=== PATIENT | male | born 1995 | race Caucasian/White ===

== ENCOUNTER 2019-07-03 22:17 | Emergency (ER) | payer OTHER ==
[2019-07-03] MEDS ORDERED: Ketorolac 60 MG/2 ML SDV IM ONE (22:36)
--- NOTE | 2019-07-03 22:45 | EDM.PDOC ---
ED HPI GENERAL MEDICAL PROBLEM - General Chief Complaint: Upper Extremity Injury/Pain Stated Complaint: INJURY TO R HAND Time Seen by Provider: 07/03/19 22:34 Source of Information: Reports: Patient - History of Present Illness INITIAL COMMENTS - FREE TEXT/NARRATIVE: Garfield is a 23 y/o male who comes to the ER with pain in his right hand. He reports that he punched the side of his pickup tonight when he was angry. He also did the same thing a week or so ago. He can move his fingers, but he reports a sharp constant pain in his hand. He has taken no meds. Review of Systems - Review of Systems Review Of Systems: See Below Constitutional: Reports: No Symptoms Eyes: Reports: No Symptoms Ears: Reports: No Symptoms Nose: Reports: No Symptoms Mouth/Throat: Reports: No Symptoms Respiratory: Reports: No Symptoms Cardiovascular: Reports: No Symptoms GI/Abdominal: Reports: No Symptoms Genitourinary: Reports: No Symptoms Musculoskeletal: Reports: No Symptoms, Hand Pain (right) Skin: Reports: No Symptoms Neurological: Reports: No Symptoms Psychiatric: Reports: No Symptoms ED EXAM, GENERAL - Physical Exam Exam: See Below Exam Limited By: No Limitations General Appearance: Alert, WD/WN, No Apparent Distress Ears: Normal External Exam, Normal Canal, Hearing Grossly Normal, Normal TMs Nose: Normal Inspection Throat/Mouth: Normal Inspection Head: Atraumatic, Normocephalic Neck: Supple Respiratory/Chest: No Respiratory Distress Cardiovascular: Other (deferred) GI/Abdominal: Other (deferred) (Male) Exam: Deferred Rectal (Males) Exam: Deferred Back Exam: Other (deferred) Extremities: Normal Range of Motion, Normal Capillary Refill, Redness (right hand, tender over disatal metacarpal region, mildly swollen) Neurological: Alert, Oriented, CN II-XII Intact, Normal Cognition, Normal Gait, Normal Reflexes, No Motor/Sensory Deficits Psychiatric: Normal Affect Skin Exam: Warm, Dry, Intact, Normal Color Lymphatic: Other (deferred) Course - Vital Signs Text/Narrative:: 2234 The patient was seen by the [employer]. Xray was ordered. He was given Toradol 60 mg IM for pain. 2300 Xray reviewed, no acute fx noted (Final Read pending). Patient was given discharge instructions and sent home stable condition. - Orders/Labs/Meds Orders: Active Orders 24 hr Category Date Time Status Hand 2V Rt [CR] Stat Exams 07/03/19 22:35 Taken Meds: Medications Discontinued Medications Generic Name Dose Route Start Last Admin Trade Name Noelle PRTing Reason Stop Dose Admin Ketorolac Tromethamine 60 mg 07/03/19 22:36 Toradol IM 07/03/19 22:37 ONETIME ONE Departure - Departure Time of Disposition: 23:02 Disposition: Home, Self-Care 01 Condition: Good Clinical Impression: Contusion of hand, right - Discharge Information *PRESCRIPTION DRUG MONITORING PROGRAM REVIEWED*: Not Applicable *COPY OF PRESCRIPTION DRUG MONITORING REPORT IN PATIENT TRINI: Not Applicable Instructions: Contusion, [id number], Hand Contusion, [id number] Forms: ED Department Discharge Additional Instructions: 1)Avoid hitting your pickup in the future 2)Ibuprofen 200mg 3 tablets oral every 6 hours as needed for pain 3)Acetaminophen 325mg 2-3 tablets oral every 4-6 hours as needed for pain 4)Apply ice as needed for the swelling and to decrease pain 5)Follow up with your PCP if pain in your hand continues or you have any other concerns - Problem List & Annotations (1) Contusion of hand, right SNOMED Code(s): 3959413 Code(s): S60.221A - CONTUSION OF RIGHT HAND, INITIAL ENCOUNTER Status: Acute Current Visit: Yes Qualifiers: Encounter type: initial encounter Qualified Code(s): S60.221A - Contusion of right hand, initial encounter - My Orders Last 24 Hours: My Active Orders 07/03/19 22:35 Hand 2V Rt [CR] Stat - Assessment/Plan Last 24 Hours: My Active Orders 07/03/19 22:35 Hand 2V Rt [CR] Stat
--- NOTE | 2019-07-04 08:24 | CR ---
[id number] RAD/RAD Hand Right 2V EXAM: RIGHT HAND 2 VIEWS INDICATION: Right hand pain secondary to punching pickup. COMPARISON: None. DISCUSSION: Lucency overlying the ventral aspect of the distal pole of the scaphoid. This could potentially represent a nondisplaced small fracture, but was a somewhat unusual location for fracture. Consider repeat radiographs. IMPRESSION: 1. Nonspecific lucency ventral aspect distal pole scaphoid possibly representing a nondisplaced fracture. Louis Maria MD 07/04/19 0822 Thank you for allowing us to participate in the care of your patient.
== END 2019-07-03 23:12 | disposition home or self-care (01) ==
LOC: VM.ED 22:17
DX: S60.221A Contusion of right hand, initial encounter (principal); W22.8XXA Striking against or struck by other objects, initial encounter
CPT/HCPCS: 73120; 96372; 99283; J1885

== ENCOUNTER 2019-08-28 08:48 | Emergency (ER) | payer OTHER ==
--- NOTE | 2019-08-28 10:02 | EDM.PDOC ---
ED HPI GENERAL MEDICAL PROBLEM - General Chief Complaint: Behavioral/Psych Stated Complaint: suicidal thoughts Time Seen by Provider: 08/28/19 08:55 Source of Information: Reports: Patient History Limitations: Reports: No Limitations - History of Present Illness INITIAL COMMENTS - FREE TEXT/NARRATIVE: Patient comes into the emergency department with police escort for suicidal ideation. Patient had sent a snapshot to his girlfriend earlier this morning stating he was going to look down the barrel of a gun and shoot himself. Patient states that he has a long-standing history of anxiety and depression and states if certain triggers her headache hands up becoming severely depressed and thinks about anything his life. Last night was Wattles occurrences he got a fight with his girlfriend and they were deciding whether the relationship was really going to be long-standing or not. After discussion left and he admits to taking a picture and admits to wanting to harm himself he ended up not on the trigger. Police ended up finding him and bring him in to the emergency department for further evaluation. Patient states he's had issues with his mood dating back to about the age of 14 or 15. He admits to having 10- 12 suicide attempts in his life including putting a gun to his head multiple occurrences and also overdosing on medications at least 4 times. Medications that he's overdosed on have been sleeping meds, ADHD meds, and muscle relaxers. Last night he does admit to using marijuana around 3 AM to help calm his nerves. Patient states that prior to his use of marijuana he felt sad, depressed , loss of interest, hopeless, hopeless, and worthless and guilty. He also states there is a long-standing history of anxiety and those feelings include feeling excessive worry, poor concentration, restlessness, and irritability. Patient currently states that he will not hurt himself and feels that his suicidal ideations have resolved she feels that his trigger has been released and he is more calm now. She denies any concerns or complaints currently and states that he does not have any injuries or illnesses reported. Onset: Gradual Severity: Moderate Improves with: Reports: None Worsens with: Reports: None Lower Back Pain Score (Numeric/FACES): 4 - Related Data Allergies Allergy/AdvReac Type Severity Reaction Status Date / Time No Known Allergies Allergy Verified 08/28/19 09:10 Home Meds: Home Meds . [No Known Home Meds] 07/04/19 [History] Past Medical History Psychiatric History: Reports: ADHD, Bipolar, Depression Dermatologic History: Reports: Other (See Below) Other Dermatologic History: staph infection L knee - Infectious Disease History Infectious Disease History: Reports: Other (See Below) Other Infectious Disease History: Patient states he has a history of a "staph infection" in his knee from a laceration that required a hospital stay. Social & Family History - Tobacco Use Smoking Status *Q: Current Every Day Smoker Years of Tobacco use: 14 Packs/Tins Daily: 3 - Recreational Drug Use Recreational Drug Use: Yes Drug Use in Last 12 Months: Yes Recreational Drug Type: Reports: Marijuana/Hashish Recreational Drug Use Frequency: Rarely ED ROS GENERAL - Review of Systems Review Of Systems: ROS reveals no pertinent complaints other than HPI. Constitutional: Reports: No Symptoms HEENT: Reports: No Symptoms Respiratory: Reports: No Symptoms Cardiovascular: Reports: No Symptoms Endocrine: Reports: No Symptoms GI/Abdominal: Reports: No Symptoms : Reports: No Symptoms Musculoskeletal: Reports: No Symptoms Skin: Reports: No Symptoms Neurological: Reports: No Symptoms Psychiatric: Reports: No Symptoms Hematologic/Lymphatic: Reports: No Symptoms Immunologic: Reports: No Symptoms ED EXAM, GENERAL - Physical Exam Exam: See Below Exam Limited By: No Limitations General Appearance: Alert, WD/WN, No Apparent Distress Eye Exam: Bilateral Eye: EOMI, PERRL Nose: Normal Inspection, Normal Mucosa, No Blood Throat/Mouth: Normal Inspection, Normal Lips, Normal Teeth Head: Atraumatic, Normocephalic Neck: Normal Inspection, Supple, Non-Tender, Full Range of Motion Respiratory/Chest: No Respiratory Distress, Lungs Clear, Normal Breath Sounds, No Accessory Muscle Use, Chest Non-Tender Cardiovascular: Normal Peripheral Pulses, Regular Rate, Rhythm, No Edema GI/Abdominal: Normal Bowel Sounds, Soft, Non-Tender, No Distention Back Exam: Normal Inspection, Full Range of Motion Extremities: Normal Inspection, Normal Range of Motion, Non-Tender, No Pedal Edema, Normal Capillary Refill Neurological: Alert, Oriented, CN II-XII Intact, Normal Gait Psychiatric: Normal Affect, Normal Mood Skin Exam: Warm, Dry, Intact, Normal Color Course - Vital Signs Last Recorded V/S: Last Vital Signs Temp 37.3 C 08/28/19 08:50 Pulse 92 08/28/19 08:50 Resp 16 08/28/19 08:50 BP 149/96 H 08/28/19 08:50 Pulse Ox 98 08/28/19 08:50 Departure - Departure Time of Disposition: 10:30 Disposition: Home, Self-Care 01 Condition: Fair Clinical Impression: Suicidal ideation - Discharge Information *PRESCRIPTION DRUG MONITORING PROGRAM REVIEWED*: Not Applicable *COPY OF PRESCRIPTION DRUG MONITORING REPORT IN PATIENT TRINI: Not Applicable Instructions: Suicidal Feelings: How to Help Yourself, Persistent Depressive Disorder, Adult Referrals: PCP,Unknown [Primary Care Provider] - Forms: ED Department Discharge, ED Return to Work/School Form Additional Instructions: 1. rest 2. Rosi the screener from the [facility] discussed present to open access tomorrow for further evaluation and appointment set up with psychiatry 3. Activity and diet as tolerated 4. The crisis line that was provided to you a [phone] 5. If you have any questions or any directions to the facility please call [facility] [phone] 6. As discussed with the screener on the phone a safety plan has been in place please follow the safety plan if at any time you do not feel the safety plan is helping any longer please present back to the emergency department immediately for further evaluation and treatment options 7. Please call with any questions or concerns he may have 8. If you're to be closer to [place] please present to the [facility] at [address] phone number is [phone] Call in the morning and find out what time open access is so he can present for an evaluation/screening - Assessment/Plan Assessment:: 1. Suicidal ideation
== END 2019-08-28 10:45 | disposition home or self-care (01) ==
LOC: VM.ED 08:48
DX: R45.851 Suicidal ideations (principal); F17.210 Nicotine dependence, cigarettes, uncomplicated; Z91.5 Personal history of self-harm
CPT/HCPCS: 99285

== ENCOUNTER 2021-10-01 19:49 | Emergency (ER) | payer OTHER ==
--- NOTE | 2021-10-01 19:53 | EDM.PDOC ---
ED HPI GENERAL MEDICAL PROBLEM - General Stated Complaint: METAL OR PAIN IN R EYE Time Seen by Provider: 10/01/21 19:52 History Limitations: Reports: No Limitations - History of Present Illness INITIAL COMMENTS - FREE TEXT/NARRATIVE: Patient come to the emergency department today with complaints of an eye pain and pain to his right eye. Earlier today at approximately 11:00 at work while the patient was at work he suddenly had a severe pain in his right eye. He is unsure if something flew into his eye. He was not grinding with metal or a wire brush. He was just working and suddenly had a severe pain in his right eye. He rinsed it out for a while but he still has quite a bit of pain to his right eye. He has not take anything for pain. He has a little bit of blurriness to his right eye but no double vision. He is starting to have a little bit of a headache as well to. His tetanus immunization is up-to-date right eye Pain Score (Numeric/FACES): 7 - Related Data Allergies Allergy/AdvReac Type Severity Reaction Status Date / Time No Known Allergies Allergy Verified 10/01/21 20:28 Home Meds: Home Meds Albuterol Sulfate [Albuterol Sulfate Hfa] 2 puff INH Q4H PRN 10/01/21 [History] SUMAtriptan [Imitrex] 50 mg PO ASDIRECTED PRN 10/01/21 [History] Past Medical History Psychiatric History: Reports: ADHD, Bipolar, Depression Dermatologic History: Reports: Other (See Below) Other Dermatologic History: staph infection L knee - Infectious Disease History Infectious Disease History: Reports: Other (See Below) Other Infectious Disease History: Patient states he has a history of a "staph infection" in his knee from a laceration that required a hospital stay. ED ROS GENERAL - Review of Systems Review Of Systems: Comprehensive ROS is negative, except as noted in HPI. ED EXAM GENERAL W FULL EYE - Physical Exam Exam: See Below Exam Limited By: No Limitations General Appearance: Alert, WD/WN, Moderate Distress (He appears in moderate discomfort and pain.) Eye Exam: Right Eye: Corneal Abrasion (Just on the outside of the iris at the 9 o'clock position there is about 1/2 cm rather large impressive abrasion to the eye. There is no flap. The rest of the eye is unremarkable.), Bilateral Eye: EOMI, PERRL Visual Acuity (R) 20/: 40 Visual Acuity (L) 20/: 20 With Correction: No Eyelids: Bilateral: Normal Appearance Conjunctiva & Sclera: Bilateral: Normal Appearance Extraocular Movements: Bilateral: Intact Pupils: Normal Accommodation Pupillary Size: Bilateral: 4 mm Pupillary Reaction: Bilateral: Brisk Ears: Normal External Exam Nose: Normal Inspection Throat/Mouth: Normal Inspection Course - Vital Signs Last Recorded V/S: Last Vital Signs Temp 98.1 F 10/01/21 19:50 Pulse 84 10/01/21 19:50 Resp 16 10/01/21 19:50 BP 156/92 H 10/01/21 19:50 Pulse Ox - Orders/Labs/Meds Meds: Medications Discontinued Medications Generic Name Dose Route Start Last Admin Trade Name Luisq PRN Reason Stop Dose Admin Hydrocodone Bitart/Acetaminophen 1 tab 10/01/21 20:17 10/01/21 20:40 Acetaminophen/Hydrocodone 325-10 Mg Tab PO 10/01/21 20:18 1 tab ONETIME ONE Administration Hydrocodone Bitart/Acetaminophen 1 packet 10/01/21 20:17 10/01/21 20:41 Take Home: Acetaminophen/Hydrocodone 325-5 Mg, 5 Tab Pack PO 10/01/21 20:18 1 packet ONETIME ONE Administration Atropine Sulfate 1 ml 10/01/21 20:18 10/01/21 20:49 Atropine 1% Ophth Soln 5 Ml Bottle EYERT 10/01/21 20:19 1 ml NOW STA Administration Ciprofloxacin 1 ml 10/01/21 20:32 10/01/21 20:41 Ciprofloxacin 0.3% Ophth Soln 2.5 Ml Bottle EYERT 10/01/21 20:33 2 drop ONETIME ONE Administration Fluorescein Sodium 1 mg 10/01/21 20:07 10/01/21 20:12 Fluorescein 1 Mg Ophth Strip EYERT 10/01/21 20:08 1 mg ONETIME ONE Administration Fluorescein Sodium Confirm 10/01/21 20:09 10/01/21 20:39 Fluorescein 1 Mg Ophth Strip Administered 10/01/21 20:10 Not Given Dose 1 mg .ROUTE .STK-MED ONE Ibuprofen 600 mg 10/01/21 20:17 10/01/21 20:39 Ibuprofen 200 Mg Tab PO 10/01/21 20:18 600 mg NOW STA Administration Proparacaine HCl 1 ml 10/01/21 19:57 10/01/21 20:50 Proparacaine 0.5% Ophth Soln 15 Ml Bottle EYERT 3 drop ASDIRECTED PRN Administration Other - Re-Assessments/Exams Free Text/Narrative Re-Assessment/Exam: Under fluorescein staining I identified a corneal abrasion. There is no foreign material debris or embedment of debris on the cornea. The patient was initially anesthetized with tetracaine. He was also given atropine eyedrops due to the severe pain in his right eye. Ibuprofen hydrocodone for pain. Cipro eyedrops to the right eye. We will discharge him home with hydrocodone and pain management as well as the Cipro drops. If he is not improving 90% x 24 hours or 100% x 48 hours he is to recheck with optometry or ophthalmology. He is comfortable with this plan and his questions were answered. His prescriptions were dispensed from the ER. Departure - Departure Time of Disposition: 20:40 Disposition: Home, Self-Care 01 Clinical Impression: Corneal abrasion, right Qualifiers: Encounter type: initial encounter Qualified Code(s): S05.01XA - Injury of conjunctiva and corneal abrasion without foreign body, right eye, initial encounter - Discharge Information Instructions: Corneal Abrasion, [id number] Referrals: PCP,Not In Area [Primary Care Provider] - Forms: ED Department Discharge Additional Instructions: No contact lenses until completely healed. Tylenol and or Ibuprofen as needed for pain. IF pain not controlled with above. [place] 1 tablet every 4-6 hrs with food as needed for pain. Caution sedation. Dispensed from the ED. Cipro eye drops, 2 drops to the right eye every 4 hrs for the next 5 days. Bottle dispensed from the ED. You should have 90% improvement in 24 hours and in 48hrs 100% improvement. If you are not following this pattern recheck with optometry. Return to the ED if new or worsening symptoms. Follow up as above.
[2021-10-01] MEDS ORDERED: Fluorescein 1 MG Ophth Strip EYERT ONE (20:07)
[2021-10-01] MEDS ORDERED: Fluorescein 1 MG Ophth Strip ONE (20:09)
[2021-10-01] MEDS: Proparacaine 0.5% Ophth Soln 15 ML Bottle EYERT PRN ×2 (20:10→20:50)
[2021-10-01] MEDS ORDERED: Ibuprofen 200 MG Tab PO STA (20:17)
[2021-10-01] MEDS ORDERED: Take Home: Acetaminophen/HYDROcodone 325-5 MG, 5 Tab Pack PO ONE (20:17)
[2021-10-01] MEDS ORDERED: Acetaminophen/HYDROcodone 325-10 MG Tab PO ONE (20:17)
[2021-10-01] MEDS ORDERED: Atropine 1% Ophth Soln 5 ML BOTTLE EYERT STA (20:18)
[2021-10-01] MEDS ORDERED: Ciprofloxacin 0.3% Ophth Soln 2.5 ML Bottle EYERT ONE (20:32)
== END 2021-10-01 20:57 | disposition home or self-care (01) ==
LOC: VM.ED 19:49
DX: S05.01XA Injury of conjunctiva and corneal abrasion without foreign body, right eye, initial encounter (principal); X58.XXXA Exposure to other specified factors, initial encounter; Y92.009 Unspecified place in unspecified non-institutional (private) residence as the place of occurrence of the external cause
CPT/HCPCS: 99283; A9270